=== PATIENT | male | born 1990 | race Caucasian/White ===

== ENCOUNTER → 2025-05-27 | Outpatient (CLI) | payer BC ==
[2025-05-27 15:54] LABS: Basophils # (A) 0.03 X 10*3/uL (0.00-0.10); Basophils % (A) 0.5 %; Eosinophils # (A) 0.10 X 10*3/uL (0.04-0.35); Eosinophils % (A) 1.5 %; HCT 45.0 % (39.6-50.0); HGB 14.8 g/dL (13.0-17.0); Immature Grans, Automated 0.20 %; Lymphocytes # (A) 2.18 X 10*3/uL (0.90-5.00); Lymphocytes % (A) 33.4 %; MCH 28.5 pg (27.0-32.0); MCHC 32.9 g/dL (32.0-37.0); MCV 86.7 FL (80.0-97.0); Monocytes # (A) 0.40 X 10*3/uL (0.20-1.00); Monocytes % (A) 6.1 %; NRBC Per 100 WBC 0 X 10*3/uL (0.00-0.01); Neutrophils # (A) 3.81 X 10*3/uL (1.80-7.70); Neutrophils % (A) 58.3 %; Platelet Count 303 X 10*3/uL (140-440); RBC 5.19 X 10*6/uL (4.40-5.60); RDW 12.9 % (11.5-14.5); WBC 6.53 X 10*3/uL (4.50-10.00)
[2025-05-27 19:38] LABS: Anion Gap 11.10 mmol/L (4.00-12.00); BUN/Creat Ratio 7.70 Ratio (12.00-20.00); Blood Urea Nitrogen 7.7 mg/dL (9.0-27.0); Calcium 9.4 mg/dL (8.7-10.3); Carbon Dioxide 24.9 mmol/L (21.6-31.8); Chloride 105 mmol/L (96-109); Glucose 97 mg/dL (70-110); Potassium 4.7 mmol/L (3.5-5.5); Sodium 141 mmol/L (135-145)
== END | disposition home or self-care (01) ==
LOC: LABPAT 11:40
PROVIDERS: ATTEND Urology
DX: N20.1 Calculus of ureter (principal)
CPT/HCPCS: 36415; 80048; 85025

== ENCOUNTER 2025-05-31 10:13 | Day surgery (SDC) | payer BC ==
[~2025-05-31 10:13] MED LIST: HYDROmorphone 0.5 MG/0.5 ML SYRINGE IVP PRN; LIDOCAINE 1% (10MG/ML) FOR IV START INTRADERMA PRN; fentaNYL (PF) 50 MCG/ML 2 ML AMP IVP PRN
--- NOTE | 2025-05-31 10:38 | XR ---
EXAMINATION TYPE: XR KUB DATE OF EXAM: 05/31/2025 COMPARISON: NONE HISTORY: N20.0 Ureteral stone TECHNIQUE: Single supine KUB image of the abdomen is obtained FINDINGS: Small bowel demonstrates no evidence for dilatation or air fluid levels. Gas and fecal material is seen in non-distended colon. No convincing evidence for pneumoperitoneum. No definitive renal calculi. There is a 3 mm calculus in the right pelvis. The lung bases are clear. The osseous structures are intact. IMPRESSION: 1. There is a 3 mm calculus in the right pelvis which may represent a pelvic phlebolith versus dista l ureteral calculus at the ureterovesical junction. 2. Overall nonobstructive bowel gas pattern. [facility], , 05/31/2025 10:36 AM
[2025-05-31] MEDS: IV FLUID CONTINUATION 1,000 ML IV ONE (10:40)
[2025-05-31] MEDS: ONDANSETRON 4 MG/2 ML VIAL IVP ONE (10:52)
[2025-05-31] MEDS: DEXAMETHASONE SOD PHOSPHATE 4 MG/ML 1 ML VIAL IV ONE (10:52)
[2025-05-31] MEDS: LACTATED RINGERS 1,000 ML IV SCH (10:53)
[2025-05-31] MEDS: MIDAZOLAM 2 MG/2 ML VIAL IV PRN (11:00)
--- NOTE | 2025-05-31 12:25 | P.HPIHPCON ---
History of Present Illness H&P Date: 05/31/25 Chief Complaint: Right ureteral stone This is a 34-year-old male with history of a 6 mm right-sided proximal stone, he has been having intractable pain secondary to his stone. Option of ESWL versus ureteroscopy with holmium laser was discussed. He agreed to proceed with ur eteroscopy with holmium laser. Aware of the risk which include but not limited to bleeding, infection, injury to the ureter Consent for Procedure: I have explained the operation/procedure to the patient, including the risks, benefits, side effects, alternative therapies (including not receiving the proposed treatment or service), the likelihood of the patient achieving his/her goals, and potential recuperation problems for the procedure/sedation/analgesia, as well as any blood products, if indicated. I also explained to the patient the risks, benefits and side effects of the alternatives, as well as the risks related to not receiving the proposed procedure, care, treatment, or services. Past Medical History Additional Past Medical History / Comment(s): hx. Lt. inguinal hernia, kidney stones History of Any Multi-Drug Resistant Organisms: None Reported Past Surgical History: Hernia Repair Additional Past Surgical History / Comment(s): Lt. inguinal hernia repair Past Anesthesia/Blood Transfusion Reactions: No Reported Reaction Smoking Status: Current every day smoker - Past Family History Father Family Medical History: Coronary Artery Disease (CAD), Diabetes Mellitus Mother Family Medical History: Coronary Artery Disease (CAD), Diabetes Mellitus Medications and Allergies Home Medications Medication Instructions Recorded Confirmed Type Acetaminophen Tab [Tylenol Tab] 1,000 mg PO Q6HR 05/27/25 05/27/25 History traMADol HCL 50 mg PO Q6H PRN 05/27/25 05/27/25 History Allergies Allergy/AdvReac Type Severity Reaction Status Date / Time No Known Allergies Allergy Verified 05/27/25 08:32 Surgical - Exam Vital Signs Temp Pulse Resp BP Pulse Ox 98 F 87 18 121/77 95 05/31/25 10:51 05/31/25 10:51 05/31/25 10:51 05/31/25 10:51 05/31/25 10:51 - General no distress, moderate pain - Eyes normal ocular movement, no pale - ENT normal nares, normal mucosa - Respiratory normal expansion, normal respiratory effort - Abdomen Abdomen: soft, non tender Assessment and Plan Assessment: OR for right-sided ureteroscopy, holmium laser lithotripsy, stone basketing and stent insertion
[2025-05-31] MEDS ORDERED: PROPOFOL 10 MG/ML 20 ML VIAL IV ONE (13:31)
[2025-05-31] MEDS ORDERED: LIDOCAINE 1% INJ 10MG/ML (20 ML MDV) ONE (13:31)
[2025-05-31] MEDS ORDERED: MIDAZOLAM 2 MG/2 ML VIAL ONE (13:31)
[2025-05-31] MEDS ORDERED: fentaNYL (PF) 50 MCG/ML 2 ML AMP ONE (13:31)
--- NOTE | 2025-05-31 14:38 | FL ---
EXAMINATION TYPE: FL guidance operating room Intraoperative/procedural fluoroscopic services were pro vided. CLINICAL INDICATION:Male, 34 years old with history of Cysto for Rt kidney Stone; , [facility] FINDINGS: Single fluoroscopic image demonstrating right-sided cystoscopy. No radiographic evidence for complica tion. Total fluoroscopy time is 6 seconds. DAP: 0.67227 Gycm2 Please see the operative/procedural note for further details. [facility], , 05/31/2025 2:35 PM
[2025-05-31 14:45] VITALS: TEMP 97
[2025-05-31 15:30] VITALS: RESP 16
[2025-05-31 15:42] VITALS: BP 129/87; PULSE 76
--- NOTE | 2025-06-01 09:21 | P.OP ---
Date of Procedure: 05/31/25 Preoperative Diagnosis: Right ureteral stone Postoperative Diagnosis: Same Procedure(s) Performed: Cystoscopy, right ureteroscopy, holmium laser lithotripsy, stone basketing and stent insertion Implants: 6 Maldivian by 24 cm stent in the right ureter left on a string Anesthesia: SUNITA Surgeon: Jace Chacko Estimated Blood Loss (ml): 1 Pathology: other (Right ureteral stone) Condition: stable Disposition: PACU Indications for Procedure: This is a 34-year-old male with history of a 6 mm right-sided proximal stone, he has been having intractable pain secondary to his stone. Option of ESWL versus ureteroscopy with holmium laser was discussed. He agreed to proceed with ureteroscopy with holmium laser. Aware of the risk which include but not limited to bleeding, infection, injury to the ureter Operative Findings: Right proximal ureteral stone Description of Procedure: Patient brought the operating room, and anesthesia was induced. He was prepped and draped in sterile fashion placed in a dorsolithotomy position. Cystoscopy fitted through the 21 Maldivian sheath was inserted per urethra, cystoscopy was performed and showed no abnormality within the bladder. Attention was then carried to the right ureteral orifice. At this time the semirigid ureteroscope was inserted per urethra and advanced up the right ureteral orifice, I advanced the scope all the way up to the proximal ureter which showed a large stone at that level. Given the angle of the stone I was unable to fragmented using the rigid ureteroscope, at this point a sensor wire was advanced through the ureteroscope and into the kidney, pullback ureteroscopy was performed showing no injury to the ureter or any additional stones. At this time an 1113 Maldivian access sheath was passed over the wire under fluoroscopy into the proximal ureter and distal to the stone. Next flexibile ureteroscope was inserted through the access sheath, stone was visualized at the proximal ureter. Using the holmium laser the stone was fragmented, stone fragments were removed using a stone basket. Repeat ureteroscopy showed no sizable fragments or injury to the ureter, the ureteroscope was advanced into the kidney a complete renoscopy was performed showed no injury to the ureter or any sizable fragments. Pullback ureteroscopy was performed showed no injury to the ureter or any ureteral stones, as the ureteroscope was withdrawn a sensor wire was advanced through. Next a ureteral stent was passed over the wire, the proximal curl was visualized under fluoroscopy and the distal curl was visualized in the cystoscope. The stent was left on a string and taped to the patient penis. Patient was awakened from anesthesia and taken to recovery in stable condition
== END 2025-05-31 16:15 | disposition home or self-care (01) ==
LOC: OR 10:13
PROVIDERS: ATTEND Urology
DX: N20.2 Calculus of kidney with calculus of ureter (principal); F17.210 Nicotine dependence, cigarettes, uncomplicated; Z98.890 Other specified postprocedural states; Z83.3 Family history of diabetes mellitus; Z82.49 Family history of ischemic heart disease and other diseases of the circulatory system; Z79.899 Other long term (current) drug therapy
CPT/HCPCS: 82365; 74018; 52356; J2250; J1100; J0690; J2405

== ENCOUNTER 2025-06-01 16:11 | Emergency (ER) | payer BC ==
[2025-06-01 17:12] VITALS: BP 137/87; PULSE 77; RESP 18; TEMP 98.3
[2025-06-01 17:49] LABS: Bilirubin,Urine Negative (Negative); Blood,Urine Large (Negative); Color,Urine Yellow; Glucose,Urine (UA) Negative (Negative); Ketones,Urine Negative (Negative); Leukocyte Esterase,Urine Large (Negative); Mucus,Urine Rare /hpf; Nitrite,Urine Negative (Negative); PH, Urine 6.0 (5.0-8.0); Protein,Urine 2+ (Negative); RBC,Urine >182 /hpf (0-5); Specific Gravity,Urine 1.016 (1.001-1.035); Urobilinogen,Urine <2.0 mg/dL (<2.0); WBC,Urine 180 /hpf (0-5)
--- NOTE | 2025-06-01 18:22 | ED ---
General Adult HPI - General Source: patient Mode of arrival: ambulatory Limitations: no limitations <Benja Estevez - Last Filed: 06/01/25 18:20> <Alexi Owusu - Last Filed: 06/17/25 21:48> - General Chief complaint: Abdominal Pain Stated complaint: abdominal pain, tesicle pain post sx 05-31-25 Time Seen by Provider: 06/01/25 16:27 - History of Present Illness Initial comments: Quick note: This is a 34-year-old male with history including kidney stones and left inguinal hernia presenting for postsurgical pain. Patient endorses receiving a right ureteral stent yesterday from Dr. Auguste due to a kidney stone. Patient endorses significant amount of blood in urine initially that began resolving before worsening just recently. States right flank/abdominal pain has been worsening (07/04) despite use of tramadol. (Benja Estevez) - Related Data Home Medications Medication Instructions Recorded Confirmed Acetaminophen Tab [Tylenol Tab] 1,000 mg PO Q6HR 05/27/25 05/27/25 traMADol HCL 50 mg PO Q6H PRN 05/27/25 05/27/25 Allergies Allergy/AdvReac Type Severity Reaction Status Date / Time No Known Allergies Allergy Verified 05/27/25 08:32 Review of Systems ROS Other: All systems not noted in ROS Statement are negative. <Benja Estevez - Last Filed: 06/01/25 18:20> ROS Other: All systems not noted in ROS Statement are negative. <Alexi Owusu - Last Filed: 06/17/25 21:48> ROS Statement: Those systems with pertinent positive or pertinent negative responses have been documented in the HPI. Past Medical History Additional Past Medical History / Comment(s): hx. Lt. inguinal hernia, kidney stones History of Any Multi-Drug Resistant Organisms: None Reported Past Surgical History: Hernia Repair Additional Past Surgical History / Comment(s): Lt. inguinal hernia repair Past Anesthesia/Blood Transfusion Reactions: No Reported Reaction Past Psychological History: No Psychological Hx Reported Smoking Status: Current every day smoker Past Alcohol Use History: Rare Past Drug Use History: None Reported - Past Family History Father Family Medical History: Coronary Artery Disease (CAD), Diabetes Mellitus Mother Family Medical History: Coronary Artery Disease (CAD), Diabetes Mellitus <Benja Estevez - Last Filed: 06/01/25 18:20> General Exam Limitations: no limitations <Benja Estevez - Last Filed: 06/01/25 18:20> - General Exam Comments Initial Comments: Visual Physical Exam Vital signs reviewed General: Well-appearing, nontoxic, no acute distress. Head: Normocephalic, atraumatic Eyes: PERRLA, EOMI ENT: Airway patent Chest: Nonlabored breathing Skin: No visual rash, normal skin tone Neuro: Alert and oriented 3 Musculoskeletal: No gross abnormalities (Benja Estevez) Course Vital Signs 06/01/25 17:09 Temperature 98.3 F Pulse Rate 77 Respiratory 18 Rate Blood Pressure 137/87 O2 Sat by Pulse 99 Oximetry Medical Decision Making <Benja Estevez - Last Filed: 06/01/25 18:20> <Alexi Owusu - Last Filed: 06/17/25 21:48> - Medical Decision Making I completed the quick note portion of this chart signed PAYAM Sexton (Benja Estevez) No attestation (Alexi Owusu) - Lab Data Lab Results 06/01/25 Range/Units 17:25 Urine Color Yellow Urine Appearance Cloudy (Clear) Urine pH 6.0 (5.0-8.0) Ur Specific [place] 1.016 (1.001-1.035) Urine Protein 2+ H (Negative) Urine Glucose (UA) Negative (Negative) Urine Ketones Negative (Negative) Urine Blood Large H (Negative) Urine Nitrite Negative (Negative) Urine Bilirubin Negative (Negative) Urine Urobilinogen <2.0 (<2.0) mg/dL Ur Leukocyte Esterase Large H (Negative) Urine RBC >182 H (0-5) /hpf Urine WBC 180 H (0-5) /hpf Urine Mucus Rare H (None) /hpf Disposition <Benja Estevez - Last Filed: 06/01/25 18:20> <Alexi Owusu - Last Filed: 06/17/25 21:48> Clinical Impression: Kidney stone Disposition: LEFT AGAINST MEDICAL ADVICE Referrals: Daniel Gallardo, [Primary Care Provider] - 1-2 days
== END 2025-06-01 19:05 | disposition left against medical advice (07) ==
LOC: EC 16:11
CPT/HCPCS: 81001; 99283